=== PATIENT | female | born 1940 | race Caucasian/White ===

== ENCOUNTER → 2017-09-16 | Outpatient (CLI) | payer OTHER ==
--- NOTE | 2017-09-19 02:57 | RAD ---
Examination: XR HAND 3 OR MORE VIEWS dated 09/16/2017 8:43 AM [employer]CEPTIONAL [employer]ER History: PAIN IN RIGHT HAND Comparison: None Technique: Three views of the right hand FINDINGS AND IMPRESSION: No acute fracture or dislocation. 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 Degenerative cystic change of the capitate. Mild degenerative changes of the first MCP joint. Electronically signed by: Juni Huertas MD 09/19/2017 2:56 AM [employer]IONAL [employer]S [employer]ER
== END ==
LOC: RAD 08:33
PROVIDERS: ATTEND Orthopaedic Surgery
DX: M79.641 Pain in right hand (principal); Z01.818 Encounter for other preprocedural examination

== ENCOUNTER 2018-08-30 05:47 | Day surgery (SDC) | payer OTHER ==
[2018-08-30] MEDS ORDERED: LIDOCAINE 1% 10 ML VIAL INJ ONE (07:00)
[2018-08-30] MEDS ORDERED: PROPOFOL 200 MG/20 ML VIAL IV ONE (07:00)
[2018-08-30] MEDS ORDERED: LACTATED RINGERS 1,000 ML ONE (07:03)
--- NOTE | 2018-08-30 11:29 | OP ---
DATE OF PROCEDURE: 08/30/18 PREPROCEDURE DIAGNOSIS: 1. Chronic nausea. 2. History of colonic polyps. Last colonoscopy was in 2011. POSTPROCEDURE DIAGNOSIS: 1. Normal upper endoscopy. 2. Internal hemorrhoids. PROCEDURE: 1. Upper endoscopy with biopsy. 2. Colonoscopy. SURGEON: Joseph Lazar MD. SEDATION: Monitored anesthesia care. ESTIMATED BLOOD LOSS: Less than 5 mL. PROCEDURE: Informed consent was obtained prior to sedation. The preprocedure cardiopulmonary assessment was satisfactory. The patient was brought to the Endoscopy Suite and placed in the left lateral decubitus position. The patient was then sedated by the anesthesia team. The tip of the Olympus EGD scope was inserted into oropharynx and advanced under direct visualization across the cricopharyngeus muscle into the esophageal lumen. The entire esophagus appeared normal. Retroflexed view of the cardia showed no hiatal hernia. The remaining examination of the stomach was normal. Biopsies were taken with cold forceps from the antrum for the evaluation of H. pylori. The first and second portions of the duodenum were normal. The endoscope was then withdrawn and she was repositioned for colonoscopy. Digital rectal and perianal exams were normal. The tip of the Olympus colonoscope was inserted into the rectum and advanced under direct visualization to the cecum as identified by the presence of the appendiceal orifice and ileocecal valve. Preparation of the colon was good. Upon reaching the cecum, the endoscope was slowly withdrawn. The colon was markedly tortuous, requiring manual pressure with excessive looping. There were no polyps seen. The examination was normal aside from a small amount of bleeding internal hemorrhoids. The endoscope was then withdrawn from the patient and the procedure terminated. RECOMMENDATION: 1. Discharge the patient home with escort. 2. Resume regular diet. 3. Continue present medications. 4. Okay to restart Xarelto tomorrow. 5. Followup in my office as previously scheduled. 6. No surveillance colonoscopy recommended due to the patient's age and absence of adenomas on this exam. #[id number] [facility]
[2018-08-30 11:41] VITALS: BP 140/67; TEMP 97.6; O2SAT 97
== END 2018-08-30 11:25 | disposition home or self-care (01) ==
LOC: AMB 05:47
PROVIDERS: ATTEND Internal Medicine Gastroenterology
DX: R11.0 Nausea (principal); Q43.8 Other specified congenital malformations of intestine; K64.8 Other hemorrhoids; K29.50 Unspecified chronic gastritis without bleeding; I10 Essential (primary) hypertension; I25.10 Atherosclerotic heart disease of native coronary artery without angina pectoris; I48.91 Unspecified atrial fibrillation; E66.9 Obesity, unspecified; Z95.0 Presence of cardiac pacemaker; Z86.010 Personal history of colon polyps; Z87.891 Personal history of nicotine dependence; Z79.01 Long term (current) use of anticoagulants; Z79.899 Other long term (current) drug therapy
CPT/HCPCS: 00813; 43239; 45378; J3490; J7120